=== PATIENT | female | born 1975 ===

== ENCOUNTER 2024-02-09 14:41 | Inpatient (IN) ==
[2024-02-09] MEDS: IPRATROPIUM/ALBUTEROL 3 ML AMPUL.NEB NEB ONE ×2 (15:10→22:00)
[2024-02-09 15:29] LABS: Basophils # (Auto) 0.01 K/mcL (0.00-0.30); Basophils % (Auto) 0.1 % (0.0-2.0); Eosinophils # (Auto) 0 K/mcL (0.00-0.70); Eosinophils % (Auto) 0 % (0.0-7.0); Hemoglobin 14.6 g/dL (11.2-15.7); Lymphocytes # (Auto) 0.56 K/mcL (1.50-4.80); Lymphocytes % (Auto) 4.3 % (15.5-49.0); Mean Cell Volume 92.1 fL (80.0-100.0); Mean Corpuscular HGB Conc 33.2 g/dL (31.0-36.0); Mean Platelet Volume 10.8 fL (8.8-12.5); Monocytes # (Auto) 0.78 K/mcL (0.10-0.90); Neutrophils % (Auto) 89.4 % (38.0-78.0); Platelet Count 318 K/mcL (140-440); RBC 4.78 M/mcL (3.59-5.38); Red Cell Distribution Width 12.2 % (11.5-14.5); WBC 12.9 K/mcL (4.5-11.0)
[2024-02-09] MEDS: methylPREDNISolone SOD SUCC 125 MG/2 ML VIAL IV ONE (15:30)
[2024-02-09 15:43] LABS: Blood Urea Nitrogen 7 mg/dL (6-20); Calcium 9.6 mg/dL (8.6-10.4); Carbon Dioxide 17 mmol/L (22-30); Chloride 103 mmol/L (96-108); Glomerular Filtration Rate 103; Glucose 131 mg/dL (70-105); Potassium 4.1 mmol/L (3.3-5.1); Sodium 138 mmol/L (133-145)
[2024-02-09] MEDS: ALBUTEROL SULFATE 2.5 MG/3 ML NEBULIZER NEB ONE (16:30)
[2024-02-09] MEDS: MAGNESIUM SULFATE 2 GM/50 ML BAG IV ONE (16:53)
[2024-02-09] MEDS: LORazepam 2 MG/ML VIAL IV ONE (16:53)
[2024-02-09] MEDS: LEVALBUTEROL 1.25 MG/3 ML AMPUL.NEB NEB ONE (20:35)
[2024-02-09] MEDS: cefTRIAXone 2 GM in DEXTROSE 5% IN WATER 50 ML IV ONE (20:37)
[2024-02-09 23:26] LABS: C-Reactive Protein 2.53 mg/dL (0.03-0.80)
[2024-02-09] MEDS ORDERED: ONDANSETRON 4 MG/2 ML VIAL IV PRN (23:59)
[2024-02-10] MEDS: IPRATROPIUM/ALBUTEROL 3 ML AMPUL.NEB NEB SCH (00:12)
[2024-02-10] MEDS: 0.9 % SODIUM CHLORIDE 1,000 ML IV SCH (00:12)
[2024-02-10] MEDS: LORazepam 2 MG/ML VIAL IV PRN (00:13)
[2024-02-10] MEDS: IPRATROPIUM/ALBUTEROL 3 ML AMPUL.NEB NEB ONE ×3 (00:13→07:38)
[2024-02-10] MEDS: DOXYCYCLINE 100 MG in DEXTROSE 5% IN WATER 100 ML IV SCH (00:14)
[2024-02-10] MEDS: LORazepam 2 MG/ML VIAL ONE (00:21)
[2024-02-10] MEDS: morphine 2 MG/ML VIAL IV PRN ×2 (02:58→08:09)
[2024-02-10] MEDS: morphine 2 MG/ML VIAL ONE (03:00)
[2024-02-10] MEDS: ALBUTEROL SULFATE 2.5 MG/3 ML NEBULIZER NEB PRN (05:24)
[2024-02-10] MEDS: ALBUTEROL SULFATE 2.5 MG/3 ML NEBULIZER ONE (05:28)
[2024-02-10] MEDS: 0.9 % SODIUM CHLORIDE 10 ML SYRINGE IV SCH (05:28)
[2024-02-10 06:12] LABS: Basophils # (Auto) 0 K/mcL (0.00-0.30); Basophils % (Auto) 0 % (0.0-2.0); Eosinophils # (Auto) 0 K/mcL (0.00-0.70); Eosinophils % (Auto) 0 % (0.0-7.0); Hematocrit 40.5 % (34.1-44.9); Hemoglobin 13.5 g/dL (11.2-15.7); Lymphocytes # (Auto) 0.66 K/mcL (1.50-4.80); Lymphocytes % (Auto) 5.5 % (15.5-49.0); Mean Cell Volume 92.5 fL (80.0-100.0); Mean Corpuscular HGB Conc 33.3 g/dL (31.0-36.0); Mean Platelet Volume 10.8 fL (8.8-12.5); Monocytes # (Auto) 1.27 K/mcL (0.10-0.90); Monocytes % (Auto) 10.5 % (1.0-12.0); Neutrophils % (Auto) 83.8 % (38.0-78.0); Platelet Count 314 K/mcL (140-440); RBC 4.38 M/mcL (3.59-5.38); Red Cell Distribution Width 12.3 % (11.5-14.5); WBC 12.1 K/mcL (4.5-11.0)
[2024-02-10 06:36] LABS: C-Reactive Protein 1.18 mg/dL (0.03-0.80)
[2024-02-10 06:39] LABS: ALT/SGPT 28 U/L (<40); AST/SGOT 22 U/L (<32); Albumin 4.5 gm/dL (3.2-5.2); Albumin/Globulin Ratio 1.7 (1.0-2.3); Alkaline Phosphatase 57 U/L (39-117); Bilirubin,Total 0.2 mg/dL (0.1-1.0); Blood Urea Nitrogen 10 mg/dL (6-20); Calcium 9.7 mg/dL (8.6-10.4); Carbon Dioxide 22 mmol/L (22-30); Chloride 102 mmol/L (96-108); Globulin 2.6 gm/dL (2.2-3.7); Glomerular Filtration Rate 88; Glucose 136 mg/dL (70-105); Potassium 4.3 mmol/L (3.3-5.1); Sodium 138 mmol/L (133-145)
[2024-02-10] MEDS: methylPREDNISolone SOD SUCC 125 MG/2 ML VIAL IV SCH (06:45)
[2024-02-10] MEDS: HEPARIN 5,000 UNIT/ML VIAL SQ SCH (08:09)
[2024-02-10] MEDS: cefTRIAXone 1 GM VIAL IV SCH (08:09)
[2024-02-10] MEDS: OMEPRAZOLE 20 MG CAPSULE PO SCH (12:08)
[2024-02-10] MEDS: MONTELUKAST 10 MG TABLET PO SCH (12:08)
[2024-02-10] MEDS: guaiFENesin/CODEINE 10 ML UDC PO PRN (19:50)
[2024-02-11 06:32] LABS: Basophils # (Auto) 0 K/mcL (0.00-0.30); Basophils % (Auto) 0 % (0.0-2.0); Eosinophils # (Auto) 0 K/mcL (0.00-0.70); Eosinophils % (Auto) 0 % (0.0-7.0); Hematocrit 40.6 % (34.1-44.9); Hemoglobin 13.4 g/dL (11.2-15.7); Lymphocytes # (Auto) 0.99 K/mcL (1.50-4.80); Lymphocytes % (Auto) 11.4 % (15.5-49.0); Mean Platelet Volume 10.8 fL (8.8-12.5); Monocytes # (Auto) 0.81 K/mcL (0.10-0.90); Monocytes % (Auto) 9.3 % (1.0-12.0); Platelet Count 321 K/mcL (140-440); RBC 4.32 M/mcL (3.59-5.38); Red Cell Distribution Width 12.5 % (11.5-14.5); WBC 8.7 K/mcL (4.5-11.0)
[2024-02-11 06:52] LABS: ALT/SGPT 26 U/L (<40); AST/SGOT 22 U/L (<32); Albumin 4.1 gm/dL (3.2-5.2); Albumin/Globulin Ratio 1.6 (1.0-2.3); Alkaline Phosphatase 55 U/L (39-117); Bilirubin,Total 0.2 mg/dL (0.1-1.0); Blood Urea Nitrogen 12 mg/dL (6-20); Calcium 9.5 mg/dL (8.6-10.4); Carbon Dioxide 22 mmol/L (22-30); Chloride 101 mmol/L (96-108); Globulin 2.6 gm/dL (2.2-3.7); Glomerular Filtration Rate 103; Glucose 144 mg/dL (70-105); Sodium 139 mmol/L (133-145)
[2024-02-11] MEDS: methylPREDNISolone SOD SUCC 125 MG/2 ML VIAL IV SCH ×2 (10:10→18:54)
[2024-02-11] MEDS: LISINOPRIL 10 MG TABLET PO SCH (11:23)
[2024-02-11] MEDS: diphenhydrAMINE 50 MG/ML VIAL IV ONE (16:06)
[2024-02-11] MEDS: diphenhydrAMINE 50 MG/ML VIAL ONE (16:06)
[2024-02-11] MEDS: ENALAPRILAT 1.25 MG/ML VIAL IV PRN (20:29)
[2024-02-11] MEDS: BUDESONIDE 0.5 MG/2 ML AMPUL.NEB NEB SCH (22:59)
[2024-02-12] MEDS: ACETAMINOPHEN 325 MG TABLET PO PRN (07:39)
[2024-02-12] MEDS: LISINOPRIL 10 MG TABLET PO SCH (08:21)
[2024-02-12] MEDS: guaiFENesin 600 MG TAB.SR.12H PO SCH (10:11)
[2024-02-12] MEDS: hydrALAZINE 20 MG/ML VIAL IV PRN (21:25)
[2024-02-13] MEDS: HYDROcodone/APAP 5/325MG TABLET PO PRN (09:07)
[2024-02-13] MEDS: METOPROLOL TARTRATE 25 MG TABLET PO ONE (10:15)
[2024-02-13] MEDS: IPRATROPIUM/ALBUTEROL 3 ML AMPUL.NEB NEB PRN (10:30)
[2024-02-13] MEDS: NYSTATIN 500,000 UNITS/5 ML ORAL.SUSP PO SCH (13:36)
[2024-02-13] MEDS: IPRATROPIUM/ALBUTEROL 3 ML AMPUL.NEB NEB SCH (14:29)
[2024-02-13] MEDS: SODIUM CHLORIDE 3 % 15 ML VIAL.NEB INH ONE (14:40)
[2024-02-13] MEDS ORDERED: POLYETHYLENE GLYCOL 3350 17 GM PACKET PO PRN (15:13)
[2024-02-13] MEDS: predniSONE 20 MG TABLET PO SCH (17:29)
[2024-02-13] MEDS: DOCUSATE SODIUM 100 MG CAPSULE PO SCH (21:02)
[2024-02-14] MEDS: LORazepam 2 MG/ML VIAL IV PRN (12:36)
[2024-02-15] MEDS: METOPROLOL TARTRATE 25 MG TABLET PO SCH (10:02)
[2024-02-15] MEDS ORDERED: METOPROLOL TARTRATE 25 MG TABLET PO SCH (21:00)
== END 2024-02-15 12:02 | disposition home or self-care (01) | DRG 193 ==
LOC: ED 14:41 → ICU 23:53 → MEDSUR 02-14 22:15
PROVIDERS: ADMIT Student in an Organized Health Care Education/Training Program; ATTEND Student in an Organized Health Care Education/Training Program